=== PATIENT | male | born 1950 | race Two or more races ===

== ENCOUNTER 2021-01-09 10:25 | Outpatient (CLI) | payer MEDICARE ==
[2021-01-09] MEDS ORDERED: DAKINS HALF STRENGTH (0.25%) 480 ML BOTTLE ONE (11:44)
[2021-01-09] MEDS ORDERED: SILVER SULFADIAZINE CREAM 25 GM TUBE ONE (11:54)
[2021-01-09 12:50] LABS: BASOPHILS # (AUTO) 0.1 K/uL (0.0-0.2); BASOPHILS % (AUTO) 1.1 % (0.0-2.0); EOSINOPHILS % (AUTO) 0.5 % (0.0-6.0); HEMATOCRIT 39 % (39-51); LYMPHOCYTES # (AUTO) 0.6 K/uL (0.8-4.8); LYMPHOCYTES % (AUTO) 7.6 % (20.0-44.0); MEAN CORPUSCULAR HGB CONC 33 g/dl (31.0-36.0); MEAN CORPUSCULAR VOLUME 90 fL (80-96); MONOCYTES # (AUTO) 0.8 K/uL (0.1-1.30); MONOCYTES % (AUTO) 9.7 % (2.0-12.0); NEUTROPHILS # (AUTO) 6.8 K/uL (1.8-8.9); NEUTROPHILS % (AUTO) 81.1 % (43.0-81.0); PLATELET COUNT (AUTO) 375 K/uL (150-450); RED BLOOD CELL COUNT(AUTO) 4.36 MIL/uL (4.5-6.0); WHITE BLOOD COUNT (AUTO) 8.3 K/uL (4.3-11.0)
[2021-01-09 12:59] LABS: ALBUMIN 3.8 g/dL (3.4-5.0); C-REACTIVE PROTEIN 0.6 mg/dL (0.0-0.9); CALCIUM, SERUM 8.9 mg/dL (8.5-10.1); CREATININE 1.5 mg/dL (0.6-1.3); POTASSIUM 3.6 mmol/L (3.5-5.1)
== END 2021-01-09 23:59 | disposition home or self-care (01) ==
LOC: WOU 10:25
PROVIDERS: ATTEND Podiatrist Foot & Ankle Surgery
DX: I87.2 Venous insufficiency (chronic) (peripheral) (principal); L97.322 Non-pressure chronic ulcer of left ankle with fat layer exposed; L97.312 Non-pressure chronic ulcer of right ankle with fat layer exposed; R60.0 Localized edema; I48.91 Unspecified atrial fibrillation; Z79.82 Long term (current) use of aspirin; R26.2 Difficulty in walking, not elsewhere classified; B35.1 Tinea unguium
CPT/HCPCS: 36415; 80048; 82040; 83036; 85025; 85652; 86140; G0463

== ENCOUNTER 2021-01-16 11:10 | Outpatient (CLI) | payer MEDICARE ==
[2021-01-16] MEDS ORDERED: CLOTRIMAZOLE 1% 15 GM TUBE TP ONE ×2 (12:09)
== END 2021-01-16 23:59 | disposition home or self-care (01) ==
LOC: WOU 11:10
PROVIDERS: ATTEND Podiatrist Foot & Ankle Surgery
DX: I87.2 Venous insufficiency (chronic) (peripheral) (principal); L97.322 Non-pressure chronic ulcer of left ankle with fat layer exposed; L97.312 Non-pressure chronic ulcer of right ankle with fat layer exposed; R60.0 Localized edema; Z80.1 Family history of malignant neoplasm of trachea, bronchus and lung; Z80.8 Family history of malignant neoplasm of other organs or systems; Z88.6 Allergy status to analgesic agent; Z59.9 Problem related to housing and economic circumstances, unspecified
CPT/HCPCS: 11042; 11045; 87070 ×2; 87075 ×2; 87077; 87186 ×2; A6209 ×2

== ENCOUNTER 2021-01-23 10:35 | Outpatient (CLI) | payer MEDICARE ==
[2021-01-23] MEDS ORDERED: CLOTRIMAZOLE 1% 15 GM TUBE TP ONE ×2 (11:45→11:46)
== END 2021-01-23 23:59 | disposition home or self-care (01) ==
LOC: WOU 10:35
PROVIDERS: ATTEND Podiatrist Foot & Ankle Surgery
DX: I87.2 Venous insufficiency (chronic) (peripheral) (principal); L97.322 Non-pressure chronic ulcer of left ankle with fat layer exposed; L97.312 Non-pressure chronic ulcer of right ankle with fat layer exposed; R60.0 Localized edema; Z79.82 Long term (current) use of aspirin
CPT/HCPCS: 11042; 11045; A6209 ×2

== ENCOUNTER 2021-01-28 08:40 | Outpatient (CLI) | payer MEDICARE ==
[2021-01-28] MEDS ORDERED: HYDROCORTISONE 1% CREAM 28.35 GM TUBE TP ONE (10:01)
[2021-01-28] MEDS ORDERED: CLOTRIMAZOLE 1% 15 GM TUBE TP ONE (10:01)
== END 2021-01-28 23:59 | disposition home or self-care (01) ==
LOC: VASLAB 08:40
PROVIDERS: ATTEND Internal Medicine
DX: I87.2 Venous insufficiency (chronic) (peripheral) (principal); S81.802D Unspecified open wound, left lower leg, subsequent encounter; S81.801D Unspecified open wound, right lower leg, subsequent encounter; I48.91 Unspecified atrial fibrillation; N18.9 Chronic kidney disease, unspecified; X58.XXXD Exposure to other specified factors, subsequent encounter
CPT/HCPCS: A6209; G0463

== ENCOUNTER 2021-02-06 09:45 | Outpatient (CLI) | payer MEDICARE ==
[2021-02-06] MEDS ORDERED: SILVER NITRATE APPLICATOR 1 EA BOX ONE (10:17)
[2021-02-06] MEDS ORDERED: CLOTRIMAZOLE 1% 15 GM TUBE TP ONE (10:49)
== END 2021-02-06 23:59 | disposition home or self-care (01) ==
LOC: WOU 09:45
PROVIDERS: ATTEND Podiatrist Foot & Ankle Surgery
DX: I87.2 Venous insufficiency (chronic) (peripheral) (principal); L97.322 Non-pressure chronic ulcer of left ankle with fat layer exposed; L97.312 Non-pressure chronic ulcer of right ankle with fat layer exposed; R60.0 Localized edema; I48.91 Unspecified atrial fibrillation; Z79.82 Long term (current) use of aspirin
CPT/HCPCS: 11042; A6209 ×2

== ENCOUNTER 2021-02-13 10:10 | Outpatient (CLI) | payer MEDICARE ==
[2021-02-13] MEDS ORDERED: CLOTRIMAZOLE 1% 15 GM TUBE TP ONE (10:47)
== END 2021-02-13 23:59 | disposition home or self-care (01) ==
LOC: WOU 10:10
PROVIDERS: ATTEND Podiatrist Foot & Ankle Surgery
DX: I87.2 Venous insufficiency (chronic) (peripheral) (principal); L97.323 Non-pressure chronic ulcer of left ankle with necrosis of muscle; L97.312 Non-pressure chronic ulcer of right ankle with fat layer exposed; R60.0 Localized edema; Z79.82 Long term (current) use of aspirin
CPT/HCPCS: 17250 ×2; A6207; A6209

== ENCOUNTER 2021-02-20 09:55 | Outpatient (CLI) | payer MEDICARE ==
[2021-02-20] MEDS ORDERED: LIDOCAINE SOLN 4% 50 ML BOTTLE ONE (10:26)
[2021-02-20] MEDS ORDERED: SILVER NITRATE APPLICATOR 1 EA BOX ONE (10:45)
[2021-02-20] MEDS ORDERED: CLOTRIMAZOLE 1% 15 GM TUBE TP ONE (10:58)
== END 2021-02-20 23:59 | disposition home or self-care (01) ==
LOC: WOU 09:55
PROVIDERS: ATTEND Podiatrist Foot & Ankle Surgery
DX: I87.2 Venous insufficiency (chronic) (peripheral) (principal); L97.322 Non-pressure chronic ulcer of left ankle with fat layer exposed; L97.312 Non-pressure chronic ulcer of right ankle with fat layer exposed; R60.0 Localized edema; Z79.82 Long term (current) use of aspirin
CPT/HCPCS: 11042; 11045; A6207; A6209

== ENCOUNTER 2021-03-06 09:50 | Outpatient (CLI) | payer MEDICARE ==
[2021-03-06] MEDS ORDERED: DAKINS HALF STRENGTH (0.25%) 480 ML BOTTLE ONE (10:10)
[2021-03-06] MEDS ORDERED: SILVER NITRATE APPLICATOR 1 EA BOX ONE (10:36)
[2021-03-06] MEDS ORDERED: CLOTRIMAZOLE 1% 15 GM TUBE TP ONE (10:48)
== END 2021-03-06 23:59 | disposition home or self-care (01) ==
LOC: WOU 09:50
PROVIDERS: ATTEND Podiatrist Foot & Ankle Surgery
DX: I87.2 Venous insufficiency (chronic) (peripheral) (principal); L97.322 Non-pressure chronic ulcer of left ankle with fat layer exposed; L97.312 Non-pressure chronic ulcer of right ankle with fat layer exposed; R60.0 Localized edema; Z79.82 Long term (current) use of aspirin
CPT/HCPCS: 11042; 11045; A6207; A6209

== ENCOUNTER 2021-03-13 10:20 | Outpatient (CLI) | payer MEDICARE ==
[2021-03-13] MEDS ORDERED: DAKINS HALF STRENGTH (0.25%) 480 ML BOTTLE ONE (11:02)
[2021-03-13] MEDS ORDERED: SILVER NITRATE APPLICATOR 1 EA BOX ONE (11:02)
[2021-03-13] MEDS ORDERED: CLOTRIMAZOLE 1% 15 GM TUBE TP ONE (11:03)
== END 2021-03-13 23:59 | disposition home or self-care (01) ==
LOC: WOU 10:20
PROVIDERS: ATTEND Podiatrist Foot & Ankle Surgery
DX: I87.2 Venous insufficiency (chronic) (peripheral) (principal); L97.322 Non-pressure chronic ulcer of left ankle with fat layer exposed; L97.312 Non-pressure chronic ulcer of right ankle with fat layer exposed; R60.0 Localized edema
CPT/HCPCS: 11042; 11045; A6207; A6209 ×2

== ENCOUNTER 2021-03-20 09:45 | Outpatient (CLI) | payer MEDICARE | END 2021-03-20 23:59 | disposition home or self-care (01) | LOC: WOU 09:45 | PROVIDERS: ATTEND Podiatrist Foot & Ankle Surgery | DX: I87.2 Venous insufficiency (chronic) (peripheral) (principal); L97.322 Non-pressure chronic ulcer of left ankle with fat layer exposed; L97.312 Non-pressure chronic ulcer of right ankle with fat layer exposed; R60.0 Localized edema; Z79.82 Long term (current) use of aspirin | CPT/HCPCS: 11042; 11045; A6207; A6209 ==

== ENCOUNTER 2021-03-27 09:57 | Outpatient (CLI) | payer MEDICARE ==
[2021-03-27] MEDS ORDERED: CLOTRIMAZOLE 1% 15 GM TUBE TP ONE (10:32)
== END 2021-03-27 23:59 | disposition home or self-care (01) ==
LOC: WOU 09:57
PROVIDERS: ATTEND Podiatrist Foot & Ankle Surgery
DX: I87.2 Venous insufficiency (chronic) (peripheral) (principal); L97.322 Non-pressure chronic ulcer of left ankle with fat layer exposed; L97.312 Non-pressure chronic ulcer of right ankle with fat layer exposed; R60.0 Localized edema
CPT/HCPCS: 11042; A6207; A6209

== ENCOUNTER 2021-04-03 09:50 | Outpatient (CLI) | payer MEDICARE ==
[2021-04-03] MEDS ORDERED: CLOTRIMAZOLE 1% 15 GM TUBE TP ONE (10:52)
== END 2021-04-03 12:59 | disposition home or self-care (01) ==
LOC: WOU 09:50
PROVIDERS: ATTEND Podiatrist Foot & Ankle Surgery
DX: I87.2 Venous insufficiency (chronic) (peripheral) (principal); L97.322 Non-pressure chronic ulcer of left ankle with fat layer exposed; L97.312 Non-pressure chronic ulcer of right ankle with fat layer exposed; R60.0 Localized edema
CPT/HCPCS: 11042; A6207; A6209

== ENCOUNTER 2021-04-10 09:40 | Outpatient (CLI) | payer MEDICARE ==
[2021-04-10] MEDS ORDERED: SILVER NITRATE APPLICATOR 1 EA BOX ONE (10:09)
[2021-04-10] MEDS ORDERED: LIDOCAINE SOLN 4% 50 ML BOTTLE ONE (10:10)
== END 2021-04-10 23:59 | disposition home or self-care (01) ==
LOC: WOU 09:40
PROVIDERS: ATTEND Podiatrist Foot & Ankle Surgery
DX: I87.2 Venous insufficiency (chronic) (peripheral) (principal); L97.322 Non-pressure chronic ulcer of left ankle with fat layer exposed; L97.312 Non-pressure chronic ulcer of right ankle with fat layer exposed; R60.0 Localized edema
CPT/HCPCS: 11042; A6207; A6209

== ENCOUNTER 2021-04-24 09:45 | Outpatient (CLI) | payer MEDICARE ==
[2021-04-24] MEDS ORDERED: CLOTRIMAZOLE 1% 15 GM TUBE TP ONE (10:46)
== END 2021-04-24 23:59 | disposition home or self-care (01) ==
LOC: WOU 09:45
PROVIDERS: ATTEND Podiatrist Foot & Ankle Surgery
DX: I87.313 Chronic venous hypertension (idiopathic) with ulcer of bilateral lower extremity (principal); L97.322 Non-pressure chronic ulcer of left ankle with fat layer exposed; L97.312 Non-pressure chronic ulcer of right ankle with fat layer exposed; I87.2 Venous insufficiency (chronic) (peripheral); R60.0 Localized edema
CPT/HCPCS: 11042; A6207; A6209

== ENCOUNTER 2021-12-18 11:30 | Outpatient (CLI) | payer MEDICARE ==
[2021-12-18] MEDS ORDERED: DAKINS HALF STRENGTH (0.25%) 480 ML BOTTLE ONE (11:44)
[2021-12-18] MEDS ORDERED: GENTAMICIN 0.1% CREAM 15 GM TUBE ONE ×2 (12:45→12:55)
== END 2021-12-18 23:59 | disposition home or self-care (01) ==
LOC: WOU 11:30
PROVIDERS: ATTEND Podiatrist Foot & Ankle Surgery
DX: I87.2 Venous insufficiency (chronic) (peripheral) (principal); L97.322 Non-pressure chronic ulcer of left ankle with fat layer exposed; L97.312 Non-pressure chronic ulcer of right ankle with fat layer exposed; L97.818 Non-pressure chronic ulcer of other part of right lower leg with other specified severity
CPT/HCPCS: 11042; 87070-TC; 87186-TC

== ENCOUNTER 2021-12-25 11:20 | Outpatient (CLI) | payer MEDICARE ==
[2021-12-25] MEDS ORDERED: GENTAMICIN 0.1% CREAM 15 GM TUBE ONE (12:05)
== END 2021-12-25 23:59 | disposition home or self-care (01) ==
LOC: WOU 11:20
PROVIDERS: ATTEND Podiatrist Foot & Ankle Surgery
DX: I87.312 Chronic venous hypertension (idiopathic) with ulcer of left lower extremity (principal); L97.322 Non-pressure chronic ulcer of left ankle with fat layer exposed; L97.312 Non-pressure chronic ulcer of right ankle with fat layer exposed; L97.812 Non-pressure chronic ulcer of other part of right lower leg with fat layer exposed; I87.2 Venous insufficiency (chronic) (peripheral); L03.116 Cellulitis of left lower limb; L03.115 Cellulitis of right lower limb
CPT/HCPCS: 11042

== ENCOUNTER 2022-01-01 11:25 | Outpatient (CLI) | payer MEDICARE ==
[2022-01-01] MEDS ORDERED: DAKINS HALF STRENGTH (0.25%) 480 ML BOTTLE ONE (11:46)
[2022-01-01] MEDS ORDERED: GENTAMICIN 0.1% CREAM 15 GM TUBE ONE (12:15)
== END 2022-01-01 23:59 | disposition home or self-care (01) ==
LOC: WOU 11:25
PROVIDERS: ATTEND Podiatrist Foot & Ankle Surgery
DX: I87.2 Venous insufficiency (chronic) (peripheral) (principal); L97.322 Non-pressure chronic ulcer of left ankle with fat layer exposed; L97.312 Non-pressure chronic ulcer of right ankle with fat layer exposed; L97.812 Non-pressure chronic ulcer of other part of right lower leg with fat layer exposed; L03.116 Cellulitis of left lower limb; L03.115 Cellulitis of right lower limb; I48.91 Unspecified atrial fibrillation; Z79.82 Long term (current) use of aspirin; Z80.8 Family history of malignant neoplasm of other organs or systems; B35.1 Tinea unguium; R60.0 Localized edema; L60.2 Onychogryphosis
CPT/HCPCS: 11042

== ENCOUNTER 2022-01-08 11:30 | Outpatient (CLI) | payer MEDICARE ==
[2022-01-08] MEDS ORDERED: GENTAMICIN 0.1% CREAM 15 GM TUBE ONE (11:44)
== END 2022-01-08 23:59 | disposition home or self-care (01) ==
LOC: WOU 11:30
PROVIDERS: ATTEND Podiatrist Foot & Ankle Surgery
DX: I83.213 Varicose veins of right lower extremity with both ulcer of ankle and inflammation (principal); I83.223 Varicose veins of left lower extremity with both ulcer of ankle and inflammation; L97.312 Non-pressure chronic ulcer of right ankle with fat layer exposed; L97.322 Non-pressure chronic ulcer of left ankle with fat layer exposed; I48.91 Unspecified atrial fibrillation; Z79.82 Long term (current) use of aspirin
CPT/HCPCS: 11042

== ENCOUNTER 2022-01-15 11:25 | Outpatient (CLI) | payer MEDICARE | END 2022-01-15 23:59 | disposition home or self-care (01) | LOC: WOU 11:25 | PROVIDERS: ATTEND Podiatrist Foot & Ankle Surgery | DX: I87.2 Venous insufficiency (chronic) (peripheral) (principal); L97.322 Non-pressure chronic ulcer of left ankle with fat layer exposed; L97.312 Non-pressure chronic ulcer of right ankle with fat layer exposed; Z79.82 Long term (current) use of aspirin; I48.91 Unspecified atrial fibrillation; I49.9 Cardiac arrhythmia, unspecified | CPT/HCPCS: 11042 ==

== ENCOUNTER → 2022-01-22 | Outpatient (CLI) | payer MEDICARE ==
[~2022-01-22] MED LIST: GENTAMICIN 0.1% CREAM 15 GM TUBE ONE; HYDROCORTISONE 1% CREAM 28.35 GM TUBE TP ONE
== END | disposition home or self-care (01) ==
LOC: WOU 11:20
PROVIDERS: ATTEND Podiatrist Foot & Ankle Surgery
DX: I87.313 Chronic venous hypertension (idiopathic) with ulcer of bilateral lower extremity (principal); L97.322 Non-pressure chronic ulcer of left ankle with fat layer exposed; L97.312 Non-pressure chronic ulcer of right ankle with fat layer exposed; I87.2 Venous insufficiency (chronic) (peripheral); I48.91 Unspecified atrial fibrillation; Z79.82 Long term (current) use of aspirin
CPT/HCPCS: 11042

== ENCOUNTER 2022-01-29 11:30 | Outpatient (CLI) | payer MEDICARE ==
[~2022-01-29 11:30] MED LIST changes: +DAKINS HALF STRENGTH (0.25%) 480 ML BOTTLE ONE; -GENTAMICIN 0.1% CREAM 15 GM TUBE ONE; -HYDROCORTISONE 1% CREAM 28.35 GM TUBE TP ONE
[2022-01-29] MEDS ORDERED: GENTAMICIN 0.1% CREAM 15 GM TUBE ONE (11:41)
[2022-01-29] MEDS ORDERED: UREA 10% -AHA 4% CREAM 57 GM TUBE ONE (13:28)
== END 2022-01-29 23:59 | disposition home or self-care (01) ==
LOC: WOU 11:30
PROVIDERS: ATTEND Podiatrist Foot & Ankle Surgery
DX: I87.2 Venous insufficiency (chronic) (peripheral) (principal); L97.322 Non-pressure chronic ulcer of left ankle with fat layer exposed; L97.312 Non-pressure chronic ulcer of right ankle with fat layer exposed; I48.91 Unspecified atrial fibrillation
CPT/HCPCS: 11042; 87070-TC; 87186-TC

== ENCOUNTER 2022-02-05 11:20 | Outpatient (CLI) | payer MEDICARE | END 2022-02-05 23:59 | disposition home or self-care (01) | LOC: WOU 11:20 | PROVIDERS: ATTEND Podiatrist Foot & Ankle Surgery | DX: I87.2 Venous insufficiency (chronic) (peripheral) (principal); L97.322 Non-pressure chronic ulcer of left ankle with fat layer exposed; L97.312 Non-pressure chronic ulcer of right ankle with fat layer exposed; L08.9 Local infection of the skin and subcutaneous tissue, unspecified; I48.91 Unspecified atrial fibrillation; M79.662 Pain in left lower leg | CPT/HCPCS: 11042; 11045 ==

== ENCOUNTER 2022-02-12 10:45 | Outpatient (CLI) | payer MEDICARE ==
[2022-02-12] MEDS ORDERED: UREA 10% -AHA 4% CREAM 57 GM TUBE ONE (10:50)
[2022-02-12] MEDS ORDERED: HYDROCORTISONE 1% CREAM 28.35 GM TUBE TP ONE (10:50)
[2022-02-12] MEDS ORDERED: DAKINS HALF STRENGTH (0.25%) 480 ML BOTTLE ONE (11:14)
== END 2022-02-12 23:59 | disposition home or self-care (01) ==
LOC: WOU 10:45
PROVIDERS: ATTEND Podiatrist Foot & Ankle Surgery
DX: I87.2 Venous insufficiency (chronic) (peripheral) (principal); L97.322 Non-pressure chronic ulcer of left ankle with fat layer exposed; L97.312 Non-pressure chronic ulcer of right ankle with fat layer exposed; I48.91 Unspecified atrial fibrillation; Z79.82 Long term (current) use of aspirin
CPT/HCPCS: 11042; 11045; A6197

== ENCOUNTER 2022-04-09 09:28 | Outpatient (CLI) | payer MEDICARE, OTHER | END 2022-04-09 23:59 | disposition home or self-care (01) | LOC: WOU 09:28 | PROVIDERS: ATTEND Podiatrist Foot & Ankle Surgery | DX: I87.313 Chronic venous hypertension (idiopathic) with ulcer of bilateral lower extremity (principal); L97.322 Non-pressure chronic ulcer of left ankle with fat layer exposed; L97.312 Non-pressure chronic ulcer of right ankle with fat layer exposed; L03.116 Cellulitis of left lower limb; L03.115 Cellulitis of right lower limb; I87.2 Venous insufficiency (chronic) (peripheral); I48.91 Unspecified atrial fibrillation; Z79.82 Long term (current) use of aspirin | CPT/HCPCS: 11042; 11045; 87070-TC; 87186-TC ==

== ENCOUNTER 2023-09-12 06:22 | Inpatient (IN) | payer MEDICARE, OTHER ==
[~2023-09-12] VITALS: Ht 175.3 cm; Wt 59.0 kg
[~2023-09-12 06:22] MED LIST changes: +ASCO500T21 PO; +CHOL100043 PO; -DAKINS HALF STRENGTH (0.25%) 480 ML BOTTLE ONE; +MAGN500T2 PO
[2023-09-12] MEDS ORDERED: ANESTHESIA TRAY IN PYXIS 1 EA TRAY MC ONE ×2 (07:30→13:56)
[2023-09-12] MEDS ORDERED: BUPIVACAINE 0.5 % PF 150 MG/30 ML VIAL ONE (07:30)
[2023-09-12] MEDS ORDERED: LIDOCAINE 1%-EPI 1:100,000 20 ML VIAL ONE (07:30)
[2023-09-12] MEDS ORDERED: LIDOCAINE 1% INJ 50 ML MDV IJ ONE (07:30)
[2023-09-12] MEDS ORDERED: FENTANYL PF 100MCG/2ML AMPUL ONE (08:17)
[2023-09-12] MEDS ORDERED: BACITRACIN/POLYMYXIN B 15 GM TUBE TP ONE (09:24)
[2023-09-12] MEDS ORDERED: ACETAMINOPHEN 325 MG TABLET PO PRN (14:00)
[2023-09-12] MEDS ORDERED: MAG HYDROX/AL HYDROX/SIMETH 30 ML UDC PO PRN (14:00)
[2023-09-12] MEDS ORDERED: ZOLPIDEM TARTRATE 5 MG TABLET PO PRN (14:00)
[2023-09-12] MEDS ORDERED: ONDANSETRON HCL/PF 4 MG/2 ML VIAL IVP PRN (14:00)
[2023-09-12] MEDS ORDERED: MAGNESIUM HYDROXIDE 30 ML UDC PO PRN (14:00)
[2023-09-12] MEDS ORDERED: Z GUARD REMEDY 4 OZ OINT TP PRN (14:00)
[2023-09-12] MEDS: CHOLECALCIFEROL 1,000 UNIT TABLET (VIT D3) PO SCH (15:11)
[2023-09-12] MEDS: ANCEF 1 GM/50 ML D5W IV SCH (15:59)
[2023-09-12 16:00] VITALS: BP 137/77; TEMP 98.1; O2SAT 99
[2023-09-12] MEDS: NEOMY SULF/BACITRAC ZN/POLY 15 GM TUBE TP SCH (16:08)
[2023-09-12 20:00] VITALS: BP 129/64; TEMP 99.8; O2SAT 97
[2023-09-13 07:30] VITALS: BP 147/85; TEMP 98.4; O2SAT 98
[2023-09-13 07:58] LABS: CALCIUM, SERUM 8.3 mg/dL (8.5-10.1); CREATININE 1.3 mg/dL (0.6-1.3); MAGNESIUM 1.8 mg/dL (1.8-2.4)
[2023-09-13 08:17] LABS: BASOPHILS % (AUTO) 0.4 % (0.0-2.0); EOSINOPHILS # (AUTO) 0.1 K/uL (0.0-0.7); HEMATOCRIT 37 % (39-51); HEMOGLOBIN 12.3 g/dL (13.5-17.5); LYMPHOCYTES % (AUTO) 11.9 % (20.0-44.0); MEAN CORPUSCULAR HEMOGLOBIN 30 PG (26.0-33.0); MEAN CORPUSCULAR HGB CONC 33 g/dl (31.0-36.0); MEAN CORPUSCULAR VOLUME 92 fL (80-96); MONOCYTES % (AUTO) 12.8 % (2.0-12.0); NEUTROPHILS % (AUTO) 73.9 % (43.0-81.0); PLATELET COUNT (AUTO) 271 K/uL (150-450); RED BLOOD CELL COUNT(AUTO) 4.06 MIL/uL (4.5-6.0); RED CELL DISTRIBUTION WIDTH 14.3 % (11.5-15.0); WHITE BLOOD COUNT (AUTO) 8.1 K/uL (4.3-11.0)
[2023-09-13] MEDS: ASCORBIC ACID 500 MG TABLET PO SCH (08:25)
[2023-09-13] MEDS: MAGNESIUM OXIDE 400 MG TABLET PO SCH (08:25)
[2023-09-13] MEDS ORDERED: Neomy Sulf/Bacitrac Zn/Poly TP (10:35)
[2023-09-13 16:00] VITALS: BP 131/72; TEMP 99.7; O2SAT 97
== END 2023-09-13 16:30 | disposition home or self-care (01) | DRG 577 ==
LOC: DS 06:22 → MED 11:18 → MERGE 11:18
PROVIDERS: ADMIT Student in an Organized Health Care Education/Training Program; ATTEND Internal Medicine
PROC: 0HR1X73 Replacement of Face Skin with Autologous Tissue Substitute, Full Thickness, External Approach (ICD-10-PCS; principal; 2023-09-12)
PROC: 0HB1XZZ Excision of Face Skin, External Approach (ICD-10-PCS; 2023-09-12)
DX: C44.311 Basal cell carcinoma of skin of nose (principal); N17.9 Acute kidney failure, unspecified; I12.9 Hypertensive chronic kidney disease with stage 1 through stage 4 chronic kidney disease, or unspecified chronic kidney disease; N18.9 Chronic kidney disease, unspecified; I48.91 Unspecified atrial fibrillation; Z79.899 Other long term (current) drug therapy; Z88.6 Allergy status to analgesic agent; D64.9 Anemia, unspecified; I87.8 Other specified disorders of veins
CPT/HCPCS: 36415; 80048-TC; 83735-TC; 84100-TC; 85025-TC; G0378; J0690; J2704; J3010; J3490; J7060

== ENCOUNTER 2023-09-21 03:19 | Inpatient (IN) | payer OTHER, MEDICARE ==
[~2023-09-21] VITALS: Ht 175.3 cm; Wt 68.0 kg
[~2023-09-21 03:19] MED LIST changes: +Neomy Sulf/Bacitrac Zn/Poly TP
[2023-09-21 04:23] LABS: BASOPHILS # (AUTO) 0.1 K/uL (0.0-0.2); BASOPHILS % (AUTO) 0.7 % (0.0-2.0); EOSINOPHILS # (AUTO) 0.2 K/uL (0.0-0.7); HEMATOCRIT 41 % (39-51); HEMOGLOBIN 12.8 g/dL (13.5-17.5); LYMPHOCYTES % (AUTO) 13.7 % (20.0-44.0); MEAN CORPUSCULAR HEMOGLOBIN 30 PG (26.0-33.0); MEAN CORPUSCULAR HGB CONC 32 g/dl (31.0-36.0); MEAN CORPUSCULAR VOLUME 96 fL (80-96); MONOCYTES # (AUTO) 0.7 K/uL (0.1-1.30); MONOCYTES % (AUTO) 9.3 % (2.0-12.0); NEUTROPHILS # (AUTO) 5.6 K/uL (1.8-8.9); NEUTROPHILS % (AUTO) 74.3 % (43.0-81.0); PLATELET COUNT (AUTO) 328 K/uL (150-450); RED BLOOD CELL COUNT(AUTO) 4.22 MIL/uL (4.5-6.0); RED CELL DISTRIBUTION WIDTH 14.7 % (11.5-15.0); WHITE BLOOD COUNT (AUTO) 7.5 K/uL (4.3-11.0)
[2023-09-21 04:43] LABS: ALANINE AMINOTRANSFERASE 25 U/L (12-78); ALBUMIN 3.2 g/dL (3.4-5.0); ALKALINE PHOSPHATASE 74 U/L (46-116); ASPARTATE AMINOTRANSFERASE 23 U/L (15-37); BILIRUBIN,TOTAL 0.4 mg/dL (0.2-1.0); CALCIUM, SERUM 8.6 mg/dL (8.5-10.1); CARBON DIOXIDE 23 mmol/L (21-32); CHLORIDE 109 mmol/L (98-107); CREATININE 1.6 mg/dL (0.6-1.3); GLUCOSE 102 mg/dL (74-106); POTASSIUM 3.9 mmol/L (3.5-5.1); SODIUM SERUM 143 mmol/L (136-145); TOTAL PROTEIN, SERUM 7.2 g/dL (6.4-8.2); UREA NITROGEN, BLOOD 29 mg/dL (7-18)
[2023-09-21 05:21] LABS: INR 1.09 (0.91-1.10); PARTIAL THROMBOPLASTIN TIME 29.6 SEC (24.3-34.3); PROTHROMBIN TIME 11.5 SECS (9.2-11.1)
[2023-09-21] MEDS ORDERED: ONDANSETRON HCL/PF 4 MG/2 ML VIAL IVP PRN (06:30)
[2023-09-21] MEDS ORDERED: MAG HYDROX/AL HYDROX/SIMETH 30 ML UDC PO PRN (06:30)
[2023-09-21] MEDS ORDERED: MAGNESIUM HYDROXIDE 30 ML UDC PO PRN (06:30)
[2023-09-21] MEDS ORDERED: Z GUARD REMEDY 4 OZ OINT TP PRN (06:30)
[2023-09-21] MEDS ORDERED: ASPI-992 PO (07:35)
[2023-09-21] MEDS ORDERED: MULT-213 PO (07:35)
[2023-09-21 07:36] VITALS: O2SAT 98
[2023-09-21 08:00] VITALS: BP 150/78; TEMP 97.9; O2SAT 100
[2023-09-21] MEDS: PANTOPRAZOLE 40 MG TABLET.DR PO SCH (08:54)
[2023-09-21] MEDS: DOCUSATE SODIUM 100 MG CAPSULE PO SCH (08:54)
[2023-09-21 16:00] VITALS: BP 127/81; TEMP 98.1; O2SAT 97
[2023-09-21 20:00] VITALS: BP 118/71; TEMP 98.6; O2SAT 97
[2023-09-22 08:21] VITALS: BP 120/79; TEMP 98.2; O2SAT 100
[2023-09-22] MEDS: CELLULOSE,OXIDIZED 1 PKT EACH MC ONE (10:41)
[2023-09-22 11:35] LABS: BASOPHILS # (AUTO) 0.1 K/uL (0.0-0.2); EOSINOPHILS # (AUTO) 0.1 K/uL (0.0-0.7); EOSINOPHILS % (AUTO) 1.2 % (0.0-6.0); HEMATOCRIT 36 % (39-51); HEMOGLOBIN 11.9 g/dL (13.5-17.5); LYMPHOCYTES # (AUTO) 0.9 K/uL (0.8-4.8); LYMPHOCYTES % (AUTO) 15.5 % (20.0-44.0); MEAN CORPUSCULAR HEMOGLOBIN 30 PG (26.0-33.0); MEAN CORPUSCULAR HGB CONC 33 g/dl (31.0-36.0); MEAN CORPUSCULAR VOLUME 92 fL (80-96); MONOCYTES # (AUTO) 0.6 K/uL (0.1-1.30); MONOCYTES % (AUTO) 11.3 % (2.0-12.0); PLATELET COUNT (AUTO) 319 K/uL (150-450); RED BLOOD CELL COUNT(AUTO) 3.96 MIL/uL (4.5-6.0); RED CELL DISTRIBUTION WIDTH 14.7 % (11.5-15.0); WHITE BLOOD COUNT (AUTO) 5.7 K/uL (4.3-11.0)
[2023-09-22 11:44] LABS: ALANINE AMINOTRANSFERASE 21 U/L (12-78); ALKALINE PHOSPHATASE 69 U/L (46-116); ASPARTATE AMINOTRANSFERASE 11 U/L (15-37); BILIRUBIN,TOTAL 0.5 mg/dL (0.2-1.0); CALCIUM, SERUM 8.1 mg/dL (8.5-10.1); CARBON DIOXIDE 28 mmol/L (21-32); CHLORIDE 108 mmol/L (98-107); CREATININE 1.3 mg/dL (0.6-1.3); GLUCOSE 90 mg/dL (74-106); POTASSIUM 4.2 mmol/L (3.5-5.1); SODIUM SERUM 142 mmol/L (136-145); TOTAL PROTEIN, SERUM 6.9 g/dL (6.4-8.2); UREA NITROGEN, BLOOD 19 mg/dL (7-18)
[2023-09-22 16:08] VITALS: BP 113/74; TEMP 98.2; O2SAT 98
[2023-09-22 22:13] VITALS: BP 112/70; TEMP 98.6; O2SAT 98
[2023-09-23 08:26] VITALS: BP 109/73; TEMP 98.2; O2SAT 99
[2023-09-23 10:05] LABS: BASOPHILS # (AUTO) 0.1 K/uL (0.0-0.2); BASOPHILS % (AUTO) 1.1 % (0.0-2.0); EOSINOPHILS # (AUTO) 0.1 K/uL (0.0-0.7); HEMATOCRIT 37 % (39-51); HEMOGLOBIN 11.7 g/dL (13.5-17.5); LYMPHOCYTES # (AUTO) 1.3 K/uL (0.8-4.8); LYMPHOCYTES % (AUTO) 18.4 % (20.0-44.0); MEAN CORPUSCULAR HEMOGLOBIN 30 PG (26.0-33.0); MEAN CORPUSCULAR HGB CONC 32 g/dl (31.0-36.0); MEAN CORPUSCULAR VOLUME 92 fL (80-96); MONOCYTES # (AUTO) 0.8 K/uL (0.1-1.30); MONOCYTES % (AUTO) 11.2 % (2.0-12.0); NEUTROPHILS # (AUTO) 4.6 K/uL (1.8-8.9); NEUTROPHILS % (AUTO) 67.3 % (43.0-81.0); PLATELET COUNT (AUTO) 319 K/uL (150-450); RED BLOOD CELL COUNT(AUTO) 3.96 MIL/uL (4.5-6.0); RED CELL DISTRIBUTION WIDTH 14.4 % (11.5-15.0); WHITE BLOOD COUNT (AUTO) 6.9 K/uL (4.3-11.0)
[2023-09-23 10:33] LABS: ALANINE AMINOTRANSFERASE 19 U/L (12-78); ALBUMIN 2.9 g/dL (3.4-5.0); ALKALINE PHOSPHATASE 73 U/L (46-116); ASPARTATE AMINOTRANSFERASE 10 U/L (15-37); BILIRUBIN,TOTAL 0.4 mg/dL (0.2-1.0); CALCIUM, SERUM 8.1 mg/dL (8.5-10.1); CARBON DIOXIDE 29 mmol/L (21-32); CHLORIDE 110 mmol/L (98-107); CREATININE 1.4 mg/dL (0.6-1.3); GLUCOSE 68 mg/dL (74-106); POTASSIUM 4.1 mmol/L (3.5-5.1); SODIUM SERUM 143 mmol/L (136-145); TOTAL PROTEIN, SERUM 6.7 g/dL (6.4-8.2); UREA NITROGEN, BLOOD 23 mg/dL (7-18)
== END 2023-09-23 13:40 | disposition home or self-care (01) | DRG 810 ==
LOC: ER 03:19 → MED 06:05
PROVIDERS: ADMIT Internal Medicine; ATTEND Internal Medicine
DX: M96.831 Postprocedural hemorrhage of a musculoskeletal structure following other procedure (principal); N17.9 Acute kidney failure, unspecified; I87.313 Chronic venous hypertension (idiopathic) with ulcer of bilateral lower extremity; N18.30 Chronic kidney disease, stage 3 unspecified; Y83.4 Other reconstructive surgery as the cause of abnormal reaction of the patient, or of later complication, without mention of misadventure at the time of the procedure; Y72.8 Miscellaneous otorhinolaryngological devices associated with adverse incidents, not elsewhere classified; D64.9 Anemia, unspecified; I87.2 Venous insufficiency (chronic) (peripheral); L97.829 Non-pressure chronic ulcer of other part of left lower leg with unspecified severity; L97.819 Non-pressure chronic ulcer of other part of right lower leg with unspecified severity; Z85.828 Personal history of other malignant neoplasm of skin; Z79.82 Long term (current) use of aspirin; Y92.009 Unspecified place in unspecified non-institutional (private) residence as the place of occurrence of the external cause; I12.9 Hypertensive chronic kidney disease with stage 1 through stage 4 chronic kidney disease, or unspecified chronic kidney disease
CPT/HCPCS: 36415; 80053-TC; 85025-TC; 85730-TC; A6253; A6403; G0378

== ENCOUNTER 2023-10-03 06:44 | Day surgery (SDC) | payer MEDICARE, OTHER ==
[~2023-10-03 06:44] MED LIST changes: -ASCO500T21 PO; +ASPI-992 PO; +MULT-213 PO; -Neomy Sulf/Bacitrac Zn/Poly TP
[2023-10-03] MEDS ORDERED: LIDOCAINE 1%-EPI 1:100,000 20 ML VIAL ONE (08:54)
[2023-10-03] MEDS ORDERED: BACITRACIN/POLYMYXIN B 15 GM TUBE TP ONE (09:04)
[2023-10-03] MEDS ORDERED: NEOMY SULF/BACITRAC ZN/POLY 15 GM TUBE TP ONE (09:04)
== END 2023-10-03 09:12 | disposition home or self-care (01) ==
LOC: DS 06:44
PROVIDERS: ATTEND Surgery Plastic and Reconstructive Surgery
DX: C44.311 Basal cell carcinoma of skin of nose (principal); Z53.8 Procedure and treatment not carried out for other reasons
CPT/HCPCS: J3490

== ENCOUNTER 2023-10-25 07:14 | Inpatient (IN) | payer MEDICARE, OTHER ==
[~2023-10-25] VITALS: Ht 175.3 cm; Wt 67.1 kg
[2023-10-25] MEDS ORDERED: LIDOCAINE 1%-EPI 1:100,000 20 ML VIAL ONE (08:03)
[2023-10-25] MEDS ORDERED: ANESTHESIA TRAY IN PYXIS 1 EA TRAY MC ONE (08:03)
[2023-10-25] MEDS ORDERED: BUPIVACAINE 0.25% 75 MG/30 ML VIAL ONE (08:03)
[2023-10-25] MEDS ORDERED: LIDOCAINE 1% INJ 50 ML MDV IJ ONE (08:03)
[2023-10-25] MEDS ORDERED: BACITRACIN ZINC OINT (15 GM) 15 GM TUBE TP ONE (08:04)
[2023-10-25] MEDS ORDERED: FENTANYL PF 100MCG/2ML AMPUL ONE (08:43)
[2023-10-25] MEDS ORDERED: MIDAZOLAM HCL 2 MG/2ML VIAL ONE (08:44)
[2023-10-25 08:55] LABS: ALANINE AMINOTRANSFERASE 30 U/L (12-78); ALBUMIN 3.5 g/dL (3.4-5.0); ALKALINE PHOSPHATASE 71 U/L (46-116); ASPARTATE AMINOTRANSFERASE 21 U/L (15-37); BILIRUBIN,TOTAL 0.5 mg/dL (0.2-1.0); CALCIUM, SERUM 9.3 mg/dL (8.5-10.1); CARBON DIOXIDE 25 mmol/L (21-32); CHLORIDE 106 mmol/L (98-107); CREATININE 1.6 mg/dL (0.6-1.3); GLUCOSE 101 mg/dL (74-106); POTASSIUM 3.8 mmol/L (3.5-5.1); SODIUM SERUM 144 mmol/L (136-145); TOTAL PROTEIN, SERUM 7.5 g/dL (6.4-8.2); UREA NITROGEN, BLOOD 28 mg/dL (7-18)
[2023-10-25 11:35] VITALS: BP 142/76; TEMP 97.9; O2SAT 99
[2023-10-25] MEDS ORDERED: B CO1TAB6 PO (13:54)
[2023-10-25 16:00] VITALS: BP 121/65; TEMP 98.2; O2SAT 98
[2023-10-25] MEDS: ANCEF 1 GM/50 ML D5W IV SCH (16:39)
[2023-10-25 20:00] VITALS: BP 141/69; TEMP 97.8; O2SAT 97
[2023-10-25 21:32] VITALS: BP 141/69; TEMP 97.8; O2SAT 97
[2023-10-26 08:00] VITALS: BP 112/74; TEMP 98.2; O2SAT 97
== END 2023-10-26 16:43 | disposition home or self-care (01) | DRG 572 ==
LOC: DS 07:14 → MED 11:33
PROVIDERS: ADMIT Internal Medicine; ATTEND Internal Medicine
PROC: 0JB10ZZ Excision of Face Subcutaneous Tissue and Fascia, Open Approach (ICD-10-PCS; principal; 2023-10-25)
PROC: 0HWPX7Z Revision of Autologous Tissue Substitute in Skin, External Approach (ICD-10-PCS; 2023-10-25)
DX: C44.311 Basal cell carcinoma of skin of nose (principal); I12.9 Hypertensive chronic kidney disease with stage 1 through stage 4 chronic kidney disease, or unspecified chronic kidney disease; N18.30 Chronic kidney disease, stage 3 unspecified; Z85.828 Personal history of other malignant neoplasm of skin
CPT/HCPCS: 36415; 80053-TC; A4223; A6402; G0378; J0690; J1100; J2250; J2405; J2704; J2765; J3010; J3490; J7050; J7060

== ENCOUNTER 2023-12-15 11:09 | Inpatient (IN) | payer MEDICARE, OTHER ==
[~2023-12-15] VITALS: Ht 172.7 cm; Wt 56.7 kg
[~2023-12-15 11:09] MED LIST changes: +B CO1TAB6 PO; -MULT-213 PO
[2023-12-15 12:25] LABS: BASOPHILS # (AUTO) 0.1 K/uL (0.0-0.2); BASOPHILS % (AUTO) 1.3 % (0.0-2.0); EOSINOPHILS # (AUTO) 0.1 K/uL (0.0-0.7); EOSINOPHILS % (AUTO) 1.6 % (0.0-6.0); HEMATOCRIT 36 % (39-51); HEMOGLOBIN 11.5 g/dL (13.5-17.5); LYMPHOCYTES # (AUTO) 0.6 K/uL (0.8-4.8); LYMPHOCYTES % (AUTO) 8.9 % (20.0-44.0); MEAN CORPUSCULAR HEMOGLOBIN 27 PG (26.0-33.0); MEAN CORPUSCULAR HGB CONC 32 g/dl (31.0-36.0); MEAN CORPUSCULAR VOLUME 86 fL (80-96); MONOCYTES # (AUTO) 0.7 K/uL (0.1-1.30); MONOCYTES % (AUTO) 9.1 % (2.0-12.0); NEUTROPHILS # (AUTO) 5.7 K/uL (1.8-8.9); NEUTROPHILS % (AUTO) 79.1 % (43.0-81.0); PLATELET COUNT (AUTO) 339 K/uL (150-450); RED BLOOD CELL COUNT(AUTO) 4.19 MIL/uL (4.5-6.0); RED CELL DISTRIBUTION WIDTH 14.4 % (11.5-15.0); WHITE BLOOD COUNT (AUTO) 7.2 K/uL (4.3-11.0)
[2023-12-15 12:35] LABS: CALCIUM, SERUM 8.7 mg/dL (8.5-10.1); CARBON DIOXIDE 22 mmol/L (21-32); CHLORIDE 111 mmol/L (98-107); GLUCOSE 105 mg/dL (74-106); POTASSIUM 3.7 mmol/L (3.5-5.1); SODIUM SERUM 143 mmol/L (136-145); UREA NITROGEN, BLOOD 33 mg/dL (7-18)
[2023-12-15] MEDS: IV NS 0.9% 1,000 ML BAG IV ONE (12:35)
[2023-12-15 12:37] LABS: INR 1.15 (0.91-1.10); PARTIAL THROMBOPLASTIN TIME 32.3 SEC (24.3-34.3); PROTHROMBIN TIME 11.7 SECS (9.2-11.1)
[2023-12-15] MEDS: PIPERACILLIN /TAZOBACTAM 3.375 G in IV D5W 50 ML IV ONE (12:37)
[2023-12-15] MEDS: VANCOMYCIN 1 GM in IV D5W 250 ML IV ONE (12:39)
[2023-12-15] MEDS ORDERED: ZOLPIDEM TARTRATE 5 MG TABLET PO PRN (14:00)
[2023-12-15] MEDS ORDERED: HYDROCODONE/APAP 5/325MG TABLET PO PRN (14:00)
[2023-12-15] MEDS ORDERED: ONDANSETRON HCL/PF 4 MG/2 ML VIAL IVP PRN (14:00)
[2023-12-15] MEDS ORDERED: Z GUARD REMEDY 4 OZ OINT TP PRN (14:00)
[2023-12-15] MEDS ORDERED: MAGNESIUM HYDROXIDE 30 ML UDC PO PRN (14:00)
[2023-12-15] MEDS ORDERED: MAG HYDROX/AL HYDROX/SIMETH 30 ML UDC PO PRN (14:00)
[2023-12-15] MEDS ORDERED: ACETAMINOPHEN 325 MG TABLET PO PRN (14:00)
[2023-12-15] MEDS: CEFTRIAXONE 1 G in IV D5W 50 ML IV SCH (15:00)
[2023-12-15] MEDS ORDERED: ENOXAPARIN SODIUM 30 MG/0.3 ML DISP.SYRIN ONE (15:03)
[2023-12-15] MEDS: ENOXAPARIN SODIUM 30 MG/0.3 ML DISP.SYRIN SQ SCH (15:07)
[2023-12-15] MEDS: IV 1/2NS 1000 ML 1,000 ML IV PRN (17:31)
[2023-12-15 20:08] VITALS: BP 121/76; TEMP 98.2; O2SAT 100
[2023-12-16 06:39] LABS: BASOPHILS # (AUTO) 0.1 K/uL (0.0-0.2); BASOPHILS % (AUTO) 1.2 % (0.0-2.0); EOSINOPHILS # (AUTO) 0.2 K/uL (0.0-0.7); EOSINOPHILS % (AUTO) 3.1 % (0.0-6.0); HEMATOCRIT 33 % (39-51); HEMOGLOBIN 10.8 g/dL (13.5-17.5); LYMPHOCYTES # (AUTO) 0.7 K/uL (0.8-4.8); LYMPHOCYTES % (AUTO) 10.2 % (20.0-44.0); MEAN CORPUSCULAR HEMOGLOBIN 28 PG (26.0-33.0); MEAN CORPUSCULAR HGB CONC 32 g/dl (31.0-36.0); MEAN CORPUSCULAR VOLUME 87 fL (80-96); MONOCYTES # (AUTO) 0.9 K/uL (0.1-1.30); MONOCYTES % (AUTO) 12.7 % (2.0-12.0); NEUTROPHILS # (AUTO) 4.9 K/uL (1.8-8.9); NEUTROPHILS % (AUTO) 72.8 % (43.0-81.0); PLATELET COUNT (AUTO) 307 K/uL (150-450); RED BLOOD CELL COUNT(AUTO) 3.83 MIL/uL (4.5-6.0); RED CELL DISTRIBUTION WIDTH 14.6 % (11.5-15.0); WHITE BLOOD COUNT (AUTO) 6.7 K/uL (4.3-11.0)
[2023-12-16 07:26] LABS: CARBON DIOXIDE 23 mmol/L (21-32); CHLORIDE 110 mmol/L (98-107); CREATININE 1.4 mg/dL (0.6-1.3); GLUCOSE 85 mg/dL (74-106); PHOSPHORUS 2.5 mg/dL (2.5-4.9); POTASSIUM 4.3 mmol/L (3.5-5.1); SODIUM SERUM 142 mmol/L (136-145); UREA NITROGEN, BLOOD 23 mg/dL (7-18)
[2023-12-16] MEDS: PANTOPRAZOLE 40 MG TABLET.DR PO SCH (07:38)
[2023-12-16 08:00] VITALS: BP 136/71; TEMP 98.4; O2SAT 100
[2023-12-16] MEDS ORDERED: LIDOCAINE 5% OINT 35.44 GM TUBE TP PRN (10:30)
[2023-12-16] MEDS: VANCOMYCIN 1 GM in IV D5W 250ml IV SCH (11:59)
[2023-12-16] MEDS ORDERED: VANCOMYCIN 750 MG in IV D5W 250 ML IV SCH (12:00)
[2023-12-16 16:00] VITALS: BP 141/76; TEMP 98.6; O2SAT 99
[2023-12-16] MEDS: POVIDONE-IODINE OINT 28.4 GM TUBE TP SCH (16:06)
[2023-12-16] MEDS: APIXABAN 5 MG TABLET PO SCH (16:09)
[2023-12-16 20:00] VITALS: BP 143/80; TEMP 98.4; O2SAT 99
[2023-12-17 06:45] LABS: BASOPHILS # (AUTO) 0.1 K/uL (0.0-0.2); BASOPHILS % (AUTO) 0.9 % (0.0-2.0); EOSINOPHILS # (AUTO) 0.2 K/uL (0.0-0.7); EOSINOPHILS % (AUTO) 3.2 % (0.0-6.0); HEMATOCRIT 35 % (39-51); HEMOGLOBIN 11.4 g/dL (13.5-17.5); LYMPHOCYTES # (AUTO) 0.7 K/uL (0.8-4.8); LYMPHOCYTES % (AUTO) 10.2 % (20.0-44.0); MEAN CORPUSCULAR HEMOGLOBIN 28 PG (26.0-33.0); MEAN CORPUSCULAR HGB CONC 33 g/dl (31.0-36.0); MEAN CORPUSCULAR VOLUME 86 fL (80-96); MONOCYTES % (AUTO) 14.6 % (2.0-12.0); NEUTROPHILS % (AUTO) 71.1 % (43.0-81.0); PLATELET COUNT (AUTO) 334 K/uL (150-450); RED BLOOD CELL COUNT(AUTO) 4.03 MIL/uL (4.5-6.0); RED CELL DISTRIBUTION WIDTH 14.7 % (11.5-15.0)
[2023-12-17 06:58] LABS: ALANINE AMINOTRANSFERASE 8 U/L (12-78); ALBUMIN 2.3 g/dL (3.4-5.0); ALKALINE PHOSPHATASE 57 U/L (46-116); ASPARTATE AMINOTRANSFERASE 8 U/L (15-37); BILIRUBIN,TOTAL 0.3 mg/dL (0.2-1.0); CALCIUM, SERUM 8.1 mg/dL (8.5-10.1); CARBON DIOXIDE 25 mmol/L (21-32); CHLORIDE 111 mmol/L (98-107); CREATININE 1.3 mg/dL (0.6-1.3); GLUCOSE 99 mg/dL (74-106); MAGNESIUM 2.1 mg/dL (1.8-2.4); PHOSPHORUS 2.5 mg/dL (2.5-4.9); POTASSIUM 4.5 mmol/L (3.5-5.1); SODIUM SERUM 144 mmol/L (136-145); TOTAL PROTEIN, SERUM 6.8 g/dL (6.4-8.2); UREA NITROGEN, BLOOD 16 mg/dL (7-18)
[2023-12-17 08:00] VITALS: BP 137/82; TEMP 98.1; O2SAT 99
[2023-12-17 10:47] LABS: APPEARANCE,URINE CLEAR (CLEAR); BILIRUBIN,URINE NEGATIVE (NEGATIVE); BLOOD, URINE NEGATIVE Ery/uL (NEGATIVE); COLOR,URINE YELLOW (YELLOW); KETONES,URINE NEGATIVE (NEGATIVE); LEUKOCYTE ESTERASE ,URINE NEGATIVE (NEGATIVE); NITRITE, URINE NEGATIVE (NEGATIVE); PH,URINE 6.5 (5.0-8.0); PROTEIN,URINE NEGATIVE (NEGATIVE); UGLUCOSE NEGATIVE (NEGATIVE); UROBILINOGEN,URINE 0.2 EU/dL (0.2)
[2023-12-17 10:54] LABS: CREATININE, URINE 61.7 MG/DL (30.0-125.0); URINE TOTAL PROTEIN 26.9 mg/dL (0-11.9)
[2023-12-17 10:55] LABS: EOSINOPHIL,URINE None Seen
[2023-12-17 16:00] VITALS: BP 110/70; TEMP 98.4; O2SAT 98
[2023-12-17 20:00] VITALS: BP 123/72; TEMP 98.4; O2SAT 96
[2023-12-18 07:00] VITALS: BP 137/79; TEMP 97.7; O2SAT 99
[2023-12-18 07:28] LABS: CALCIUM, SERUM 8.2 mg/dL (8.5-10.1); CARBON DIOXIDE 29 mmol/L (21-32); CHLORIDE 110 mmol/L (98-107); CREATININE 1.1 mg/dL (0.6-1.3); GLUCOSE 87 mg/dL (74-106); POTASSIUM 4.5 mmol/L (3.5-5.1); SODIUM SERUM 142 mmol/L (136-145); UREA NITROGEN, BLOOD 17 mg/dL (7-18)
[2023-12-18 16:00] VITALS: BP 130/71; TEMP 97.6; O2SAT 97
[2023-12-18 20:00] VITALS: BP 126/80; TEMP 98.6; O2SAT 100
[2023-12-18 20:32] VITALS: BP 126/80; TEMP 98.6; O2SAT 100
[2023-12-18] MEDS: VANCOMYCIN 750 MG in IV D5W 250 ML IV SCH (23:01)
[2023-12-19 06:25] LABS: CALCIUM, SERUM 8.6 mg/dL (8.5-10.1); CARBON DIOXIDE 28 mmol/L (21-32); CHLORIDE 110 mmol/L (98-107); CREATININE 1.2 mg/dL (0.6-1.3); GLUCOSE 86 mg/dL (74-106); POTASSIUM 4.8 mmol/L (3.5-5.1); SODIUM SERUM 143 mmol/L (136-145); UREA NITROGEN, BLOOD 22 mg/dL (7-18)
[2023-12-19 08:00] VITALS: BP 132/81; TEMP 97.7; O2SAT 99
[2023-12-19] MEDS: ENSURE ENLIVE 237 ML LIQUID (VANILLA) PO SCH (10:05)
[2023-12-19 16:23] VITALS: BP 137/74; TEMP 98.2; O2SAT 99
[2023-12-19 20:00] VITALS: BP 127/59; TEMP 98.2; O2SAT 99
[2023-12-20 07:09] LABS: CALCIUM, SERUM 8.6 mg/dL (8.5-10.1); CARBON DIOXIDE 30 mmol/L (21-32); CHLORIDE 108 mmol/L (98-107); CREATININE 1.3 mg/dL (0.6-1.3); GLUCOSE 91 mg/dL (74-106); POTASSIUM 4.5 mmol/L (3.5-5.1); SODIUM SERUM 141 mmol/L (136-145); UREA NITROGEN, BLOOD 38 mg/dL (7-18)
[2023-12-20 08:34] VITALS: BP 106/65; TEMP 98.1; O2SAT 98
[2023-12-20] MEDS ORDERED: DOXY-326 PO (14:34)
[2023-12-20] MEDS ORDERED: APIX5TAB PO (14:34)
[2023-12-20 16:20] VITALS: BP 137/74; TEMP 97.7; O2SAT 99
== END 2023-12-20 18:15 | disposition home health service (06) | DRG 300 ==
LOC: ER 11:11 → MED 14:25
PROVIDERS: ATTEND Nurse Practitioner Family
DX: I87.313 Chronic venous hypertension (idiopathic) with ulcer of bilateral lower extremity (principal); E44.0 Moderate protein-calorie malnutrition; L03.116 Cellulitis of left lower limb; N17.9 Acute kidney failure, unspecified; L97.819 Non-pressure chronic ulcer of other part of right lower leg with unspecified severity; L97.829 Non-pressure chronic ulcer of other part of left lower leg with unspecified severity; I82.512 Chronic embolism and thrombosis of left femoral vein; I87.2 Venous insufficiency (chronic) (peripheral); I12.9 Hypertensive chronic kidney disease with stage 1 through stage 4 chronic kidney disease, or unspecified chronic kidney disease; I48.0 Paroxysmal atrial fibrillation; I73.9 Peripheral vascular disease, unspecified; D64.9 Anemia, unspecified; M89.8X9 Other specified disorders of bone, unspecified site; I87.8 Other specified disorders of veins; E88.09 Other disorders of plasma-protein metabolism, not elsewhere classified; Z85.828 Personal history of other malignant neoplasm of skin; Z88.6 Allergy status to analgesic agent; Z79.82 Long term (current) use of aspirin; Z79.01 Long term (current) use of anticoagulants; Z98.890 Other specified postprocedural states; Z79.899 Other long term (current) drug therapy; N18.9 Chronic kidney disease, unspecified
CPT/HCPCS: 36415; 71045-TC; 80048-TC; 80053-TC; 80202-TC; 82570-TC; 83605-TC; 83735-TC; 84100-TC; 84300-TC; 85025-TC; 85652-TC; 85730-TC; 86140-TC; 87040-TC; 87081-TC; 93926-TC; 93971-TC; 97110-TC; 97112-TC; 97116-TC; 97530-TC; 97535-TC; A4223; A6253; A6403; G0378; J0696; J1650; J2543; J3370; J3371; J3490; J7030; J7050; J7060

== ENCOUNTER 2024-01-13 08:22 | Outpatient (CLI) | payer MEDICARE, OTHER ==
[~2024-01-13 08:22] MED LIST changes: +APIX5TAB PO; -ASPI-992 PO; +DOXY-326 PO
== END 2024-01-13 23:59 | disposition home or self-care (01) ==
LOC: WOU 08:22
PROVIDERS: ATTEND Podiatrist Foot & Ankle Surgery
DX: I87.313 Chronic venous hypertension (idiopathic) with ulcer of bilateral lower extremity (principal); L97.322 Non-pressure chronic ulcer of left ankle with fat layer exposed; L97.212 Non-pressure chronic ulcer of right calf with fat layer exposed; I87.2 Venous insufficiency (chronic) (peripheral); R60.0 Localized edema
CPT/HCPCS: 11042; 11045; A6209

== ENCOUNTER 2025-02-22 08:37 | Outpatient (CLI) | payer MEDICARE, OTHER | END 2025-02-22 23:59 | disposition home or self-care (01) | LOC: WOU 08:37 | PROVIDERS: ATTEND Podiatrist Foot & Ankle Surgery | DX: I87.2 Venous insufficiency (chronic) (peripheral) (principal); R60.0 Localized edema; L60.2 Onychogryphosis; L84 Corns and callosities; N18.30 Chronic kidney disease, stage 3 unspecified; L60.3 Nail dystrophy; M79.672 Pain in left foot; M79.671 Pain in right foot | CPT/HCPCS: 29581; A6207 ==

== ENCOUNTER 2025-04-26 08:35 | Outpatient (CLI) | payer MEDICARE, OTHER | END 2025-04-26 23:59 | disposition home or self-care (01) | LOC: WOU 08:35 | PROVIDERS: ATTEND Podiatrist Foot & Ankle Surgery | DX: I87.313 Chronic venous hypertension (idiopathic) with ulcer of bilateral lower extremity (principal); L97.322 Non-pressure chronic ulcer of left ankle with fat layer exposed; L97.312 Non-pressure chronic ulcer of right ankle with fat layer exposed; I87.2 Venous insufficiency (chronic) (peripheral); R60.0 Localized edema; L60.2 Onychogryphosis; L60.3 Nail dystrophy; M79.672 Pain in left foot; M79.671 Pain in right foot | CPT/HCPCS: 29581; A6207 ==